=== PATIENT | male | born 1980 | race Caucasian/White ===

== ENCOUNTER → 2016-11-27 | Outpatient (CLI) | payer BC ==
[~2016-11-27] MED LIST: CLON0.12 PO; IOHEXOL 240 MG/ML 50ML VIAL. ONE; IOHEXOL 300 MG/ML 75 ML VIAL. IV ONE; SERT25TA4 PO; [UNRECOGNIZED DRUG - CODE] PO
--- NOTE | 2016-11-27 15:47 | RAD ---
Indication nausea vomiting diarrhea lack of appetite. Weight loss. Duration of symptoms several years. Axial images through the abdomen and pelvis were obtained. Both IV and oral contrast were administered. Approximately 75 cc of Omnipaque 300 was administered intravenously. Note is made of a similar examination 01/30/2014. The lung bases are clear. The liver and spleen appear unremarkable. Clips are noted in the gallbladder fossa. No pancreatic abnormality is seen. The adrenal glands appear normal. Similar to the previous exam the left kidney is small. Several left renal calculi are noted slightly more numerous than on the previous exam. Previously there was a solitary right renal calculus which is no longer seen. An acute finding is not seen involving either kidney. No acute finding is apparent in the abdomen. No acute or significant finding is seen in the pelvis. IMPRESSION: No acute finding seen in the abdomen or pelvis. Small left kidney similar to the previous exam. Several left renal calculi are noted PQRS Compliance Statement: One or more of the following individualized dose reduction techniques were utilized for this examination: 1. Automated exposure control 2. Adjustment of the mA and/or kV according to patient size 3. Use of iterative reconstruction technique
== END | disposition home or self-care (01) ==
LOC: CT 14:10
PROVIDERS: ATTEND Family Medicine
DX: N20.0 Calculus of kidney (principal); N27.0 Small kidney, unilateral; R11.2 Nausea with vomiting, unspecified; R63.4 Abnormal weight loss; R63.0 Anorexia
CPT/HCPCS: 74177; Q9966; Q9967

== ENCOUNTER → 2021-11-27 | Outpatient (CLI) | payer BC ==
[~2021-11-27] MED LIST changes: -IOHEXOL 240 MG/ML 50ML VIAL. ONE; -IOHEXOL 300 MG/ML 75 ML VIAL. IV ONE; +SERT-267 PO; -SERT25TA4 PO
--- NOTE | 2021-11-27 08:46 | RAD ---
EXAM: XR KNEE_AP BILAT STANDING, XR KNEE_RT 1-2 VIEWS 11/27/2021 8:21 AM CLINICAL INDICATION: Chronic knee pain COMPARISON: None TECHNIQUE: Standing AP view of the bilateral knees. Lateral and sunrise views of the right knee. FINDINGS: There is no acute fracture or malalignment. Joint spaces are maintained. There is chronic fragmentation of the tibial tubercle and mild thickening of the distal patellar tendon, sequela of [place]-Schlatter's disease. Small right knee joint effusion. No acute osseous abnormality or significant degenerative joint disease of the left knee on AP view. IMPRESSION: 1. No acute osseous abnormality or degenerative joint disease. 2. Sequela of [place]-Schlatter's disease. 3. Small joint effusion. Electronically signed by: Bethany Dominguez MD (11/27/2021 8:43 AM) [id number]
--- NOTE | 2021-11-27 08:46 | RAD ---
EXAM: XR KNEE_AP BILAT STANDING, XR KNEE_RT 1-2 VIEWS 11/27/2021 8:21 AM CLINICAL INDICATION: Chronic knee pain COMPARISON: None TECHNIQUE: Standing AP view of the bilateral knees. Lateral and sunrise views of the right knee. FINDINGS: There is no acute fracture or malalignment. Joint spaces are maintained. There is chronic fragmentation of the tibial tubercle and mild thickening of the distal patellar tendon, sequela of [place]-Schlatter's disease. Small right knee joint effusion. No acute osseous abnormality or significant degenerative joint disease of the left knee on AP view. IMPRESSION: 1. No acute osseous abnormality or degenerative joint disease. 2. Sequela of [place]-Schlatter's disease. 3. Small joint effusion. Electronically signed by: Bethany Dominguez MD (11/27/2021 8:43 AM) [id number]
== END ==
LOC: RAD 08:13
PROVIDERS: ATTEND Orthopaedic Surgery Sports Medicine
DX: M25.461 Effusion, right knee (principal); M25.861 Other specified joint disorders, right knee
CPT/HCPCS: 73560; 73565